=== PATIENT | male | born 2000 | race Caucasian/White ===

== ENCOUNTER 2018-12-15 11:40 | Emergency (ER) | payer MEDICAID ==
[~2018-12-15] VITALS: Ht 185.4 cm; Wt 79.5 kg
[2018-12-15 11:41] VITALS: BP 125/58
[2018-12-15 13:00] LABS: INFLUENZA A AMPLIFICATION NEGATIVE (NEGATIVE); INFLUENZA B AMPLIFICATION NEGATIVE (NEGATIVE)
[2018-12-15] MEDS ORDERED: ZITHTAB PO (13:29)
[2018-12-15] MEDS ORDERED: CLAR5TAB7 PO (13:29)
== END 2018-12-15 13:46 | disposition home or self-care (01) ==
LOC: M ED 11:40
DX: J01.90 Acute sinusitis, unspecified (principal); R50.9 Fever, unspecified; Z20.828 Contact with and (suspected) exposure to other viral communicable diseases

== ENCOUNTER 2024-06-23 22:02 | Emergency (ER) | payer BC ==
[~2024-06-23] VITALS: Ht 185.4 cm; Wt 95.5 kg
[~2024-06-23 22:02] MED LIST: CLAR5TAB7 PO; ZITHTAB PO
[2024-06-23 22:03] VITALS: BP 148/65; TEMP 98.9; O2SAT 97
[2024-06-24] MEDS: ANUSOL HC CREAM 30GM TOP ONE (01:25)
[2024-06-24] MEDS: NYSTATIN CREAM 15GM TOP ONE (01:25)
[2024-06-24] MEDS ORDERED: ANUS2.5C2 TOP (01:38)
[2024-06-24] MEDS ORDERED: NYST-13 TOP (01:38)
== END 2024-06-24 01:54 | disposition home or self-care (01) ==
LOC: M ED 22:02
DX: K64.9 Unspecified hemorrhoids (principal); B35.9 Dermatophytosis, unspecified; Z79.2 Long term (current) use of antibiotics; Z79.899 Other long term (current) drug therapy

== ENCOUNTER → 2024-08-15 | Outpatient (CLI) | payer BC ==
[~2024-08-15] MED LIST changes: +ANUS2.5C2 TOP; +NYST-13 TOP
== END ==
LOC: M RAD 15:21
PROVIDERS: ATTEND Family Medicine
DX: N50.89 Other specified disorders of the male genital organs (principal)